=== PATIENT | female | born 1995 | race African-American/Black ===

== ENCOUNTER 2024-08-04 00:18 | Inpatient (IN) | payer OTHER ==
[2024-08-04] MEDS ORDERED: FAMOTIDINE 20 MG/50 ML IVPB 20 MG/50 ML MG IVPB ONE (01:04)
[2024-08-04] MEDS ORDERED: ACETAMINOPHEN INJECTION 100 ML ONE (01:04)
[2024-08-04] MEDS ORDERED: MAG HYDROX/AL HYDROX/SIMETH 30 ML UNIT-DOSE CUP ONE (01:04)
[2024-08-04] MEDS: FAMOTIDINE 20 MG/50 ML IVPB 20 MG/50 ML MG IVPB ONE (01:36)
[2024-08-04] MEDS: ACETAMINOPHEN 1000 MG/100 ML BAG IVPB ONE (01:36)
[2024-08-04] MEDS: MAG HYDROX/AL HYDROX/SIMETH 30 ML UNIT-DOSE CUP PO ONE (01:36)
[2024-08-04] MEDS ORDERED: morphine SULFATE 4 MG/ML VIAL ONE (01:40)
[2024-08-04 01:47] LABS: EPI CELLS 27 /uL (0-25.1); HYALINE CASTS 0 /uL (0-3.1); PH,URINE >= 9.0 (5.0-8.0); URINE APPEARANCE CLEAR; URINE BACTERIA 451 /uL (0-1359); URINE BILIRUBIN NEGATIVE (NEGATIVE); URINE COLOR YELLOW; URINE GLUCOSE (UA) NEGATIVE (NEGATIVE); URINE KETONE NEGATIVE (NEGATIVE); URINE LEUK ESTERASE NEGATIVE (NEGATIVE); URINE NITRITE NEGATIVE (NEGATIVE); URINE PROTEIN 1+ (NEGATIVE); URINE WBC 6 /uL (0-25.8)
[2024-08-04] MEDS: morphine CARPU-JECT 4 MG/1 ML DISP.SYRIN IVPUSH ONE (01:49)
[2024-08-04 01:51] LABS: INR 1.13 (0.83-1.09); PROTHROMBIN TIME (PATIENT) 12.4 SEC (9.7-13.0)
[2024-08-04] MEDS ORDERED: ONDANSETRON 4 MG/2 ML VIAL ONE ×2 (01:51→13:45)
[2024-08-04 01:54] LABS: ABSOLUTE IMMATURE GRANULOCYTES 0.02 x10^3/uL (0.0-0.031); BASOPHILS # 0.04 x10^3/uL (0.01-0.08); EOSINOPHILS # 0.08 x10^3/uL (0.04-0.36); HEMATOCRIT 35.1 % (34.1-44.9); HEMOGLOBIN 11.6 g/dL (11.2-15.7); MEAN CELL VOLUME 79.1 fl (79.4-94.8); MEAN PLT VOLUME 10.9 fl (9.4-12.3); MONOCYTE # 0.48 x10^3/uL (0.24-0.86); PLATELET COUNT 274 x10^3/uL (182-369); RDW 13.6 % (12.1-16.5)
[2024-08-04] MEDS: ONDANSETRON 4 MG/2 ML VIAL IVPUSH ONE (01:55)
[2024-08-04 02:04] LABS: CALCIUM 9.6 mg/dL (8.5-10.1)
[2024-08-04 02:05] LABS: BLOOD UREA NITROGEN 9.1 mg/dL (7-18); MAGNESIUM 2.1 mg/dL (1.8-2.4)
[2024-08-04 02:08] LABS: CREATININE 0.7 mg/dL (0.55-1.3)
[2024-08-04 02:09] LABS: BILIRUBIN,TOTAL 1.2 mg/dL (0.2-1); TOT PROT 7.4 g/dl (6.4-8.2)
[2024-08-04 02:12] LABS: POTASSIUM 3.5 mmol/L (3.5-5.1)
[2024-08-04] MEDS ORDERED: ONDANSETRON 4 MG/2 ML VIAL IVPUSH PRN ×3 (02:31→16:22)
[2024-08-04] MEDS ORDERED: MORPHINE SULFATE 2 MG/ML SYRINGE IVPUSH PRN (02:31)
[2024-08-04] MEDS ORDERED: oxyCODONE HCL 5 MG TABLET PO PRN (02:31)
[2024-08-04] MEDS: DEXTROSE 5%-0.45% SALINE 1,000 ML IV SCH ×2 (02:55→17:29)
[2024-08-04 03:00] LABS: HIV INTERPRETATION NEGATIVE (NEGATIVE)
[2024-08-04 03:01] LABS: HCV DIAGNOSTIC IN-HOUSE W/RFLX NON-REACTIVE (NONREACTIVE)
[2024-08-04 03:52] LABS: URINE RBC 21.5 /uL (0-23.9)
[2024-08-04 06:09] VITALS: BMI 30.2
[2024-08-04] MEDS: HEPARIN NA (PORCINE) 5,000 UNITS/ML 1ML VIAL SQ SCH (06:13)
[2024-08-04 08:50] LABS: BILIRUBIN,DIRECT 0.7 mg/dL (0.0-0.2)
[2024-08-04 09:22] LABS: ABSOLUTE IMMATURE GRANULOCYTES 0.02 x10^3/uL (0.0-0.031); BASOPHILS # 0.04 x10^3/uL (0.01-0.08); EOSINOPHIL % 2.2 % (0.7-5.8); EOSINOPHILS # 0.15 x10^3/uL (0.04-0.36); HEMATOCRIT 34.9 % (34.1-44.9); HEMOGLOBIN 11.2 g/dL (11.2-15.7); MCHC 32.1 g/dl (32.2-35.5); MEAN CELL VOLUME 80.6 fl (79.4-94.8); MEAN PLT VOLUME 10.7 fl (9.4-12.3); MONOCYTE # 0.45 x10^3/uL (0.24-0.86); MONOCYTE % 6.7 % (4.7-12.5); PLATELET COUNT 270 x10^3/uL (182-369); RDW 13.7 % (12.1-16.5)
[2024-08-04 09:29] LABS: INR 1.22 (0.83-1.09); PROTHROMBIN TIME (PATIENT) 13.3 SEC (9.7-13.0)
[2024-08-04 09:53] LABS: POTASSIUM 3.5 mmol/L (3.5-5.1)
[2024-08-04 10:00] LABS: ALBUMIN 3.7 g/dl (3.4-5.0); BLOOD UREA NITROGEN 6.5 mg/dL (7-18); CALCIUM 8.8 mg/dL (8.5-10.1); CREATININE 0.6 mg/dL (0.55-1.3)
[2024-08-04] MEDS ORDERED: CEFTRIAXONE 1,000 MG in DEXTROSE 5%-WATER - 50 ML IVPB SCH (10:00)
[2024-08-04 10:16] LABS: BILIRUBIN,TOTAL 1.2 mg/dL (0.2-1); TOT PROT 6.9 g/dl (6.4-8.2)
[2024-08-04] MEDS: PANTOPRAZOLE 40 MG TABLET PO SCH (11:51)
[2024-08-04] MEDS: POLYETHYLENE GLYCOL (HEALTHYLAX) 3350 17 GM PACKET PO SCH (11:51)
[2024-08-04] MEDS ORDERED: LACTATED RINGERS SOLUTION 1,000 ML IV SCH (13:30)
[2024-08-04] MEDS: CEFTRIAXONE 1 G/50 ML PREMIX 50 ML IVPB SCH (13:30)
[2024-08-04] MEDS: INDOMETHACIN 50 MG RECTAL SUPPOSITORY PR ONE (13:42)
[2024-08-04] MEDS: HYDROmorphone HCL CARPU-JECT 2 MG/1 ML DISP.SYRIN IVPB PRN (16:31)
[2024-08-04] MEDS: BENZOCAINE/MENTH/CETYLPYRD CL 1 EACH LOZENGE MM PRN (20:05)
[2024-08-04] MEDS: SENNOSIDES 8.8 MG/5 ML SYRUP PO SCH (21:07)
[2024-08-04] MEDS: LACTATED RINGERS SOLUTION 1,000 ML/1,000 ML INFUS.BAG IV SCH (21:35)
[2024-08-04] MEDS ORDERED: HEPARIN NA (PORCINE) 5,000 UNITS/ML 1ML VIAL SQ SCH (22:00)
[2024-08-05] MEDS: LACTATED RINGERS SOLUTION 1,000 ML/1,000 ML INFUS.BAG IV SCH ×2 (02:10→15:12)
[2024-08-05 08:20] LABS: ABSOLUTE IMMATURE GRANULOCYTES 0.02 x10^3/uL (0.0-0.031); BASOPHILS # 0.03 x10^3/uL (0.01-0.08); EOSINOPHIL % 1.4 % (0.7-5.8); EOSINOPHILS # 0.09 x10^3/uL (0.04-0.36); HEMOGLOBIN 10.4 g/dL (11.2-15.7); MCHC 31.5 g/dl (32.2-35.5); MEAN CELL VOLUME 82.9 fl (79.4-94.8); MONOCYTE % 6.1 % (4.7-12.5); PLATELET COUNT 212 x10^3/uL (182-369); RDW 13.7 % (12.1-16.5)
[2024-08-05 08:23] LABS: INR 1.26 (0.83-1.09); PROTHROMBIN TIME (PATIENT) 13.9 SEC (9.7-13.0)
[2024-08-05 08:44] LABS: POTASSIUM 3.8 mmol/L (3.5-5.1)
[2024-08-05 08:49] LABS: CALCIUM 8.6 mg/dL (8.5-10.1)
[2024-08-05 08:51] LABS: ALBUMIN 3.1 g/dl (3.4-5.0); BLOOD UREA NITROGEN 5.4 mg/dL (7-18)
[2024-08-05 08:54] LABS: CREATININE 0.6 mg/dL (0.55-1.3)
[2024-08-05 09:14] LABS: PHOSPHOROUS 2.8 mg/dL (2.5-4.9)
[2024-08-05] MEDS: PANTOPRAZOLE 40 MG TABLET PO SCH (09:25)
[2024-08-05] MEDS: SIMETHICONE 80 MG TAB.CHEW (FP) PO ONE (10:43)
[2024-08-05] MEDS: ACETAMINOPHEN 1000 MG/100 ML BAG IVPB PRN (11:08)
[2024-08-05] MEDS: SIMETHICONE 80 MG TAB.CHEW (FP) PO PRN (16:31)
[2024-08-06] MEDS: oxyCODONE HCL 5 MG TABLET PO PRN (01:17)
[2024-08-06 08:51] LABS: HEMATOCRIT 34.6 % (34.1-44.9); HEMOGLOBIN 11.2 g/dL (11.2-15.7); MCHC 32.4 g/dl (32.2-35.5); PLATELET COUNT 225 x10^3/uL (182-369); RDW 13.6 % (12.1-16.5)
[2024-08-06 09:07] LABS: POTASSIUM 3.5 mmol/L (3.5-5.1)
[2024-08-06 09:13] LABS: CALCIUM 8.6 mg/dL (8.5-10.1)
[2024-08-06 09:14] LABS: ALBUMIN 3.4 g/dl (3.4-5.0); BLOOD UREA NITROGEN 3.8 mg/dL (7-18)
[2024-08-06 09:17] LABS: CREATININE 0.6 mg/dL (0.55-1.3)
[2024-08-06 09:18] LABS: BILIRUBIN,TOTAL 1.4 mg/dL (0.2-1); TOT PROT 6.3 g/dl (6.4-8.2)
[2024-08-07 08:16] LABS: ABSOLUTE IMMATURE GRANULOCYTES 0.02 x10^3/uL (0.0-0.031); BASOPHILS # 0.04 x10^3/uL (0.01-0.08); EOSINOPHIL % 2.5 % (0.7-5.8); EOSINOPHILS # 0.16 x10^3/uL (0.04-0.36); HEMATOCRIT 36.2 % (34.1-44.9); HEMOGLOBIN 11.4 g/dL (11.2-15.7); MCHC 31.5 g/dl (32.2-35.5); MEAN CELL VOLUME 82.1 fl (79.4-94.8); MEAN PLT VOLUME 10.7 fl (9.4-12.3); MONOCYTE # 0.44 x10^3/uL (0.24-0.86); MONOCYTE % 6.9 % (4.7-12.5); PLATELET COUNT 237 x10^3/uL (182-369); RDW 13.3 % (12.1-16.5)
[2024-08-07 08:39] LABS: POTASSIUM 3.9 mmol/L (3.5-5.1)
[2024-08-07 08:48] LABS: CALCIUM 8.9 mg/dL (8.5-10.1)
[2024-08-07 08:49] LABS: ALBUMIN 3.4 g/dl (3.4-5.0); BLOOD UREA NITROGEN 5.8 mg/dL (7-18)
[2024-08-07 08:52] LABS: CREATININE 0.6 mg/dL (0.55-1.3)
[2024-08-07 08:53] LABS: BILIRUBIN,TOTAL 0.9 mg/dL (0.2-1)
[2024-08-07 08:54] LABS: TOT PROT 6.5 g/dl (6.4-8.2)
[2024-08-07] MEDS ORDERED: oxyCODONE HCL 5 MG TABLET PO PRN (12:53)
[2024-08-07] MEDS: HYDROmorphone HCL CARPU-JECT 2 MG/1 ML DISP.SYRIN IVPB PRN (13:06)
[2024-08-08] MEDS ORDERED: DEXAMETHASONE SOD PHOSPHATE 4 MG/1 ML VIAL ONE (08:01)
[2024-08-08] MEDS ORDERED: KETOROLAC TROMETHAMINE 30 MG/1 ML VIAL ONE (08:01)
[2024-08-08] MEDS ORDERED: ONDANSETRON 4 MG/2 ML VIAL ONE (08:01)
[2024-08-08] MEDS ORDERED: ROCURONIUM BROMIDE 50 MG/5 ML SYRINGE ONE ×2 (08:02→09:30)
[2024-08-08] MEDS ORDERED: PROPOFOL 20 ML ONE ×2 (08:02→09:18)
[2024-08-08] MEDS ORDERED: MIDAZOLAM HCL 2 MG/2 ML SINGLE DOSE VIAL ONE ×2 (08:05→11:36)
[2024-08-08 08:13] LABS: ABSOLUTE IMMATURE GRANULOCYTES 0.02 x10^3/uL (0.0-0.031); BASOPHILS # 0.04 x10^3/uL (0.01-0.08); EOSINOPHIL % 1.5 % (0.7-5.8); EOSINOPHILS # 0.12 x10^3/uL (0.04-0.36); HEMATOCRIT 40.3 % (34.1-44.9); MCHC 32.3 g/dl (32.2-35.5); MEAN CELL VOLUME 81.4 fl (79.4-94.8); MEAN PLT VOLUME 10.2 fl (9.4-12.3); MONOCYTE # 0.44 x10^3/uL (0.24-0.86); MONOCYTE % 5.5 % (4.7-12.5); PLATELET COUNT 299 x10^3/uL (182-369); RDW 13.3 % (12.1-16.5)
[2024-08-08] MEDS ORDERED: BUPIVACAINE HCL/PF 0.25% (2.5MG/ML) 10 ML VIAL ONE (08:25)
[2024-08-08] MEDS: CEFTRIAXONE 1 GM/50 ML PREMIX IVPB ONE (08:30)
[2024-08-08 08:41] LABS: POTASSIUM 4.3 mmol/L (3.5-5.1)
[2024-08-08 08:43] LABS: CALCIUM 9.3 mg/dL (8.5-10.1)
[2024-08-08 08:44] LABS: ALBUMIN 3.9 g/dl (3.4-5.0); BLOOD UREA NITROGEN 6.3 mg/dL (7-18); MAGNESIUM 2.1 mg/dL (1.8-2.4)
[2024-08-08 08:47] LABS: CREATININE 0.6 mg/dL (0.55-1.3); PHOSPHOROUS 3.4 mg/dL (2.5-4.9)
[2024-08-08 08:48] LABS: BILIRUBIN,TOTAL 0.9 mg/dL (0.2-1)
[2024-08-08 08:49] LABS: TOT PROT 7.4 g/dl (6.4-8.2)
[2024-08-08] MEDS ORDERED: HYDROmorphone HCl 2 MG/ML VIAL ONE (09:34)
[2024-08-08] MEDS: BUPIVACAINE HCL/PF 0.25% (2.5MG/ML) 10 ML VIAL IJ ONE ×2 (09:40)
[2024-08-08] MEDS ORDERED: PROMETHAZINE HCL 25 MG/1 ML VIAL IVPB PRN ×2 (10:05→12:15)
[2024-08-08] MEDS ORDERED: SUGAMMADEX SODIUM 200 MG/2 ML VIAL ONE (10:55)
[2024-08-08] MEDS ORDERED: DEXMEDETOMIDINE HCL 200 MCG/2 ML IVPB ONE (11:43)
[2024-08-08] MEDS: LACTATED RINGERS SOLUTION 1,000 ML IV SCH ×2 (12:12→14:13)
[2024-08-08] MEDS ORDERED: ONDANSETRON 4 MG/2 ML VIAL IVPUSH PRN (12:15)
[2024-08-08] MEDS ORDERED: SIMETHICONE 80 MG TAB.CHEW (FP) PO PRN (12:15)
[2024-08-08] MEDS ORDERED: oxyCODONE HCL 5 MG TABLET PO PRN (12:15)
[2024-08-08] MEDS ORDERED: BENZOCAINE/MENTH/CETYLPYRD CL 1 EACH LOZENGE MM PRN (12:15)
[2024-08-08 14:13] VITALS: RESP 16
[2024-08-08] MEDS: KETOROLAC TROMETHAMINE 30 MG/1 ML VIAL IM SCH (18:00)
[2024-08-08] MEDS: DOCUSATE SODIUM 100 MG CAPSULE (FP) PO SCH (18:05)
[2024-08-08] MEDS: ACETAMINOPHEN 1000 MG/100 ML BAG IVPB SCH (18:05)
[2024-08-08] MEDS: SENNOSIDES 8.8 MG/5 ML SYRUP PO SCH (22:19)
[2024-08-08] MEDS: KETOROLAC TROMETHAMINE 30 MG/1 ML VIAL IVPUSH ONE (23:25)
[2024-08-08] MEDS: KETOROLAC TROMETHAMINE 30 MG/1 ML VIAL IVPB ONE (23:35)
[2024-08-09] MEDS: MELATONIN 5 MG TABLETS PO ONE (00:45)
[2024-08-09] MEDS: oxyCODONE HCL 5 MG TABLET PO PRN (00:46)
[2024-08-09] MEDS ORDERED: IBUPROFEN 600 MG TABLET (FP) PO PRN (05:45)
[2024-08-09] MEDS ORDERED: ACETAMINOPHEN 500 MG TABLET (FP) PO PRN ×2 (05:45→11:19)
[2024-08-09 08:54] LABS: HEMATOCRIT 35.2 % (34.1-44.9); HEMOGLOBIN 11.4 g/dL (11.2-15.7); MCHC 32.4 g/dl (32.2-35.5); MEAN CELL VOLUME 82.1 fl (79.4-94.8); MEAN PLT VOLUME 10.9 fl (9.4-12.3); PLATELET COUNT 247 x10^3/uL (182-369); RDW 13.6 % (12.1-16.5)
[2024-08-09] MEDS: CEFTRIAXONE 1 G/50 ML PREMIX 50 ML IVPB SCH (09:04)
[2024-08-09] MEDS: PANTOPRAZOLE 40 MG TABLET PO SCH (09:04)
[2024-08-09] MEDS: POLYETHYLENE GLYCOL (HEALTHYLAX) 3350 17 GM PACKET PO SCH (09:04)
[2024-08-09 09:12] LABS: POTASSIUM 3.8 mmol/L (3.5-5.1)
[2024-08-09 09:21] LABS: ALBUMIN 3.6 g/dl (3.4-5.0); BILIRUBIN,TOTAL 0.9 mg/dL (0.2-1); MAGNESIUM 1.9 mg/dL (1.8-2.4)
[2024-08-09 09:22] LABS: TOT PROT 6.5 g/dl (6.4-8.2)
[2024-08-09 09:24] LABS: BILIRUBIN,DIRECT 0.7 mg/dL (0.0-0.2); CREATININE 0.6 mg/dL (0.55-1.3)
[2024-08-09 09:25] LABS: PHOSPHOROUS 2.9 mg/dL (2.5-4.9)
[2024-08-09 10:32] VITALS: BP 118/69; PULSE 58; TEMP 97.5
[2024-08-09] MEDS ORDERED: oxyCODONE HCL 5 MG TABLET PO PRN (11:19)
[2024-08-09] MEDS: IBUPROFEN 600 MG TABLET (FP) PO PRN (11:26)
== END 2024-08-09 12:32 | disposition home or self-care (01) | DRG 263 ==
LOC: JER 00:18 → JERBED 02:11 → J6S 05:00 → OBSVTOIN 08-06 10:41
PROVIDERS: ADMIT Hospitalist; ATTEND Internal Medicine
PROC: 0FC98ZZ Extirpation of Matter from Common Bile Duct, Via Natural or Artificial Opening Endoscopic (ICD-10-PCS; 2024-08-04)
PROC: BF14YZZ Fluoroscopy of Gallbladder, Bile Ducts and Pancreatic Ducts using Other Contrast (ICD-10-PCS; 2024-08-04)
PROC: 0F798DZ Dilation of Common Bile Duct with Intraluminal Device, Via Natural or Artificial Opening Endoscopic (ICD-10-PCS; 2024-08-04)
PROC: 0FB98ZX Excision of Common Bile Duct, Via Natural or Artificial Opening Endoscopic, Diagnostic (ICD-10-PCS; 2024-08-04)
PROC: 0FT44ZZ Resection of Gallbladder, Percutaneous Endoscopic Approach (ICD-10-PCS; principal; 2024-08-08 09:00)
DX: K80.20 Calculus of gallbladder without cholecystitis without obstruction (principal); K76.0 Fatty (change of) liver, not elsewhere classified; E80.6 Other disorders of bilirubin metabolism; R10.11 Right upper quadrant pain; R11.2 Nausea with vomiting, unspecified
CPT/HCPCS: 36415; 74181-TC; 76000-TC-FY; 76705-TC; 80053; 81003; 82248; 83605; 83690; 83735; 84100; 84703; 85025; 85027; 85610; 85730; 86140; 86803; 86850; 86900; 86901; 87086; 87389; 88104; 88304-TC; 88305-TC; 94010; 94760; 99285-25; G0378; J0131

== ENCOUNTER 2024-08-10 00:57 | Inpatient (IN) | payer OTHER ==
[2024-08-10] MEDS ORDERED: ACETAMINOPHEN INJECTION 100 ML ONE (02:44)
[2024-08-10] MEDS: ACETAMINOPHEN 1000 MG/100 ML BAG IVPB ONE (03:09)
[2024-08-10 03:19] LABS: ABSOLUTE IMMATURE GRANULOCYTES 0.04 x10^3/uL (0.0-0.031); BASOPHILS # 0.06 x10^3/uL (0.01-0.08); EOSINOPHIL % 0.3 % (0.7-5.8); EOSINOPHILS # 0.03 x10^3/uL (0.04-0.36); HEMOGLOBIN 11.6 g/dL (11.2-15.7); MCHC 33.1 g/dl (32.2-35.5); MEAN CELL VOLUME 80.5 fl (79.4-94.8); MEAN PLT VOLUME 10.6 fl (9.4-12.3); MONOCYTE # 0.78 x10^3/uL (0.24-0.86); MONOCYTE % 6.9 % (4.7-12.5); PLATELET COUNT 274 x10^3/uL (182-369)
[2024-08-10 03:36] LABS: POTASSIUM 3.4 mmol/L (3.5-5.1)
[2024-08-10 03:38] LABS: ALBUMIN 3.9 g/dl (3.4-5.0); BLOOD UREA NITROGEN 5.6 mg/dL (7-18)
[2024-08-10 03:41] LABS: CREATININE 0.8 mg/dL (0.55-1.3)
[2024-08-10 03:43] LABS: BILIRUBIN,TOTAL 2.7 mg/dL (0.2-1); TOT PROT 7.2 g/dl (6.4-8.2)
[2024-08-10 03:49] LABS: CALCIUM 8.7 mg/dL (8.5-10.1); LACTIC ACID 2.4 mmol/L (0.4-2.0)
[2024-08-10 03:53] LABS: INR 1.29 (0.83-1.09); PROTHROMBIN TIME (PATIENT) 14.2 SEC (9.7-13.0)
[2024-08-10 03:56] LABS: ACTIVATED PTT 29.9 SECONDS (25.2-36.5)
[2024-08-10] MEDS ORDERED: morphine SULFATE 4 MG/ML VIAL ONE ×2 (05:07→07:35)
[2024-08-10] MEDS: morphine CARPU-JECT 4 MG/1 ML DISP.SYRIN IVPUSH ONE ×2 (05:12→07:57)
[2024-08-10] MEDS: SODIUM CHLORIDE 1,000 ML IV STA (05:12)
[2024-08-10] MEDS ORDERED: KETOROLAC TROMETHAMINE 15 MG/ML VIAL ONE (07:35)
[2024-08-10] MEDS ORDERED: ONDANSETRON 4 MG/2 ML VIAL ONE (07:36)
[2024-08-10] MEDS: LACTATED RINGERS SOLUTION 1000 ML INFUS.BAG IV ONE (07:58)
[2024-08-10] MEDS: KETOROLAC TROMETHAMINE 15 MG/ML VIAL IVPUSH ONE (07:58)
[2024-08-10] MEDS: ONDANSETRON 4 MG/2 ML VIAL IVPUSH ONE (07:58)
[2024-08-10 08:03] LABS: PH,URINE 7.5 (5.0-8.0); URINE APPEARANCE CLEAR; URINE BILIRUBIN 1+ (NEGATIVE); URINE COLOR DK YELLOW; URINE GLUCOSE (UA) NEGATIVE (NEGATIVE); URINE KETONE 1+ (NEGATIVE); URINE LEUK ESTERASE NEGATIVE (NEGATIVE); URINE NITRITE NEGATIVE (NEGATIVE); URINE PROTEIN NEGATIVE (NEGATIVE)
[2024-08-10] MEDS ORDERED: oxyCODONE HCL 5 MG TABLET PO PRN (08:45)
[2024-08-10] MEDS ORDERED: HYDROmorphone HCl 2 MG/ML VIAL IVPUSH PRN ×2 (08:46→09:06)
[2024-08-10] MEDS ORDERED: HYDROmorphone HCL CARPU-JECT 2 MG/1 ML DISP.SYRIN IVPUSH PRN (09:24)
[2024-08-10] MEDS ORDERED: LACTATED RINGERS SOLUTION 1,000 ML/1,000 ML INFUS.BAG IV SCH (10:00)
[2024-08-10] MEDS: SODIUM CHLORIDE 1,000 ML IV SCH (10:13)
[2024-08-10] MEDS: CEFEPIME 2 GM in DEXTROSE 5%-WATER 100 ML IVPB SCH (11:48)
[2024-08-10] MEDS: KETOROLAC TROMETHAMINE 15 MG/ML VIAL IVPUSH PRN (13:31)
[2024-08-10 15:14] LABS: ABSOLUTE IMMATURE GRANULOCYTES 0.02 x10^3/uL (0.0-0.031); BASOPHILS # 0.03 x10^3/uL (0.01-0.08); EOSINOPHIL % 0.5 % (0.7-5.8); EOSINOPHILS # 0.03 x10^3/uL (0.04-0.36); HEMATOCRIT 31.6 % (34.1-44.9); HEMOGLOBIN 10.4 g/dL (11.2-15.7); MCHC 32.9 g/dl (32.2-35.5); MEAN PLT VOLUME 11.4 fl (9.4-12.3); MONOCYTE # 0.39 x10^3/uL (0.24-0.86); MONOCYTE % 6.4 % (4.7-12.5); PLATELET COUNT 232 x10^3/uL (182-369); RDW 14.5 % (12.1-16.5)
[2024-08-10 15:22] LABS: INR 1.31 (0.83-1.09); PROTHROMBIN TIME (PATIENT) 14.3 SEC (9.7-13.0)
[2024-08-10 15:37] LABS: CHLORIDE 107 mmol/L (98-107); POTASSIUM 3.1 mmol/L (3.5-5.1); SODIUM 139 mmol/L (136-145)
[2024-08-10 15:43] LABS: ALBUMIN 3.4 g/dl (3.4-5.0); ANION GAP 9 mmol/L (4-13); CALCIUM 8.4 mg/dL (8.5-10.1); CO2 23 mmol/L (21-32)
[2024-08-10 15:44] LABS: GLUCOSE,RANDOM 105 mg/dL (74-106)
[2024-08-10 15:46] LABS: CREATININE 0.5 mg/dL (0.55-1.3); SGOT/AST 382 U/L (15-37); SGPT/ALT 421 U/L (13-61)
[2024-08-10 15:48] LABS: BILIRUBIN,TOTAL 2.8 mg/dL (0.2-1); TOT PROT 6.1 g/dl (6.4-8.2)
[2024-08-10 15:49] LABS: ALK PHOS 173 U/L (45-117)
[2024-08-10 15:54] LABS: BLOOD UREA NITROGEN 2.2 mg/dL (7-18)
[2024-08-10] MEDS: morphine SULFATE 4 MG/ML VIAL IVPUSH PRN (16:44)
[2024-08-10] MEDS: PIPERACILLIN/TAZOB 3.375 GM 50 ML IVPB SCH (17:06)
[2024-08-10] MEDS: LACTATED RINGERS SOLUTION 1,000 ML/1,000 ML INFUS.BAG IV SCH (18:53)
[2024-08-10] MEDS: HYDROmorphone HCL CARPU-JECT 2 MG/1 ML DISP.SYRIN IVPUSH ONE ×2 (19:12→22:32)
[2024-08-10] MEDS ORDERED: HYDROmorphone HCl 2 MG/ML VIAL IVPB PRN (21:40)
[2024-08-10] MEDS ORDERED: MELATONIN 5 MG TABLETS PO PRN (21:40)
[2024-08-10] MEDS ORDERED: hydrOXYzine PAMOATE 25 MG CAPSULE (FP) PO PRN (21:40)
[2024-08-10] MEDS ORDERED: HYDROmorphone HCL CARPU-JECT 2 MG/1 ML DISP.SYRIN IVPB PRN (22:29)
[2024-08-10] MEDS: HYDROmorphone HCl 2 MG/ML VIAL IVPUSH ONE (22:43)
[2024-08-11] MEDS: morphine SULFATE 4 MG/ML VIAL IVPUSH PRN (00:54)
[2024-08-11] MEDS: CEFEPIME HCL 2 GM VIAL (RESTRICTED TO ID) IVPB SCH (01:39)
[2024-08-11] MEDS: KETOROLAC TROMETHAMINE 15 MG/ML VIAL IVPUSH PRN (03:29)
[2024-08-11 07:23] LABS: ABSOLUTE IMMATURE GRANULOCYTES 0.01 x10^3/uL (0.0-0.031); BASOPHILS # 0.03 x10^3/uL (0.01-0.08); EOSINOPHIL % 0.7 % (0.7-5.8); EOSINOPHILS # 0.05 x10^3/uL (0.04-0.36); HEMOGLOBIN 10.3 g/dL (11.2-15.7); MCHC 32.2 g/dl (32.2-35.5); MEAN CELL VOLUME 82.3 fl (79.4-94.8); MEAN PLT VOLUME 11.1 fl (9.4-12.3); MONOCYTE # 0.62 x10^3/uL (0.24-0.86); MONOCYTE % 8.4 % (4.7-12.5); PLATELET COUNT 227 x10^3/uL (182-369); RDW 14.4 % (12.1-16.5)
[2024-08-11] MEDS: HYDROmorphone HCL CARPU-JECT 2 MG/1 ML DISP.SYRIN IVPUSH PRN (07:46)
[2024-08-11 07:59] LABS: CHLORIDE 105 mmol/L (98-107); POTASSIUM 3.3 mmol/L (3.5-5.1); SODIUM 137 mmol/L (136-145)
[2024-08-11 08:02] LABS: CALCIUM 8.8 mg/dL (8.5-10.1)
[2024-08-11 08:03] LABS: ALBUMIN 3.2 g/dl (3.4-5.0); ANION GAP 7 mmol/L (4-13); CO2 25 mmol/L (21-32); GLUCOSE,RANDOM 97 mg/dL (74-106); INR 1.38 (0.83-1.09); MAGNESIUM 1.5 mg/dL (1.8-2.4); PROTHROMBIN TIME (PATIENT) 15.2 SEC (9.7-13.0)
[2024-08-11 08:06] LABS: ALBUMIN 3.1 g/dl (3.4-5.0)
[2024-08-11 08:06] LABS: CREATININE 0.5 mg/dL (0.55-1.3); PHOSPHOROUS 3.2 mg/dL (2.5-4.9); SGOT/AST 267 U/L (15-37); SGPT/ALT 397 U/L (13-61)
[2024-08-11 08:07] LABS: BILIRUBIN,TOTAL 3.6 mg/dL (0.2-1)
[2024-08-11 08:08] LABS: TOT PROT 5.9 g/dl (6.4-8.2)
[2024-08-11 08:09] LABS: ALK PHOS 189 U/L (45-117)
[2024-08-11 08:11] LABS: BILIRUBIN,TOTAL 3.6 mg/dL (0.2-1); TOT PROT 5.8 g/dl (6.4-8.2)
[2024-08-11 08:29] LABS: BLOOD UREA NITROGEN 2.8 mg/dL (7-18)
[2024-08-11] MEDS: MAGNESIUM SULFATE IN WATER 2 GM/50 ML IVPB IVPB ONE (11:32)
[2024-08-11] MEDS: KCL 10 MEQ IVPB 10 MEQ/100 ML INFUS.BAG IVPB SCH (12:20)
[2024-08-11] MEDS ORDERED: MIDAZOLAM HCL 2 MG/2 ML SINGLE DOSE VIAL ONE (15:12)
[2024-08-11] MEDS ORDERED: DEXMEDETOMIDINE HCL 200 MCG/2 ML IVPB ONE (15:24)
[2024-08-11] MEDS: INDOMETHACIN 50 MG RECTAL SUPPOSITORY PR ONE (16:29)
[2024-08-11] MEDS ORDERED: ONDANSETRON 4 MG/2 ML VIAL IVPUSH PRN (17:29)
[2024-08-11] MEDS: LACTATED RINGERS SOLUTION 1,000 ML IV SCH (17:43)
[2024-08-11] MEDS ORDERED: ONDANSETRON 4 MG/2 ML VIAL ONE (18:14)
[2024-08-11] MEDS: ONDANSETRON 4 MG/2 ML VIAL IVPUSH PRN (18:17)
[2024-08-12 07:52] LABS: HEMATOCRIT 32.7 % (34.1-44.9); HEMOGLOBIN 10.8 g/dL (11.2-15.7); MEAN CELL VOLUME 80.1 fl (79.4-94.8); MEAN PLT VOLUME 11.4 fl (9.4-12.3); PLATELET COUNT 252 x10^3/uL (182-369); RDW 13.7 % (12.1-16.5)
[2024-08-12 07:59] LABS: POTASSIUM 3.8 mmol/L (3.5-5.1)
[2024-08-12 08:00] LABS: CALCIUM 8.8 mg/dL (8.5-10.1)
[2024-08-12 08:01] LABS: ALBUMIN 3.3 g/dl (3.4-5.0); BLOOD UREA NITROGEN 5.1 mg/dL (7-18)
[2024-08-12 08:04] LABS: CREATININE 0.5 mg/dL (0.55-1.3)
[2024-08-12 08:06] LABS: BILIRUBIN,TOTAL 1.5 mg/dL (0.2-1); TOT PROT 6.3 g/dl (6.4-8.2)
[2024-08-12 10:55] VITALS: RESP 18
[2024-08-12 12:09] VITALS: BMI 30.4
[2024-08-12 14:05] VITALS: BP 131/86; PULSE 59; TEMP 98.8
== END 2024-08-12 18:02 | disposition home or self-care (01) ==
LOC: JER 00:57 → JERBED 04:48 → J7W 09:05 → OBSVTOIN 08-11 14:08
PROVIDERS: ADMIT Internal Medicine; ATTEND Physician Assistant
PROC: BF100ZZ Fluoroscopy of Bile Ducts using High Osmolar Contrast (ICD-10-PCS; 2024-08-11)
PROC: 0FC98ZZ Extirpation of Matter from Common Bile Duct, Via Natural or Artificial Opening Endoscopic (ICD-10-PCS; 2024-08-11)
PROC: 0F798DZ Dilation of Common Bile Duct with Intraluminal Device, Via Natural or Artificial Opening Endoscopic (ICD-10-PCS; principal; 2024-08-11 10:00)
DX: K80.20 Calculus of gallbladder without cholecystitis without obstruction (principal); E83.42 Hypomagnesemia; K76.0 Fatty (change of) liver, not elsewhere classified; D64.9 Anemia, unspecified; D72.829 Elevated white blood cell count, unspecified; E87.6 Hypokalemia; G47.00 Insomnia, unspecified; R11.2 Nausea with vomiting, unspecified; R74.01 Elevation of levels of liver transaminase levels; R94.5 Abnormal results of liver function studies; R10.11 Right upper quadrant pain
CPT/HCPCS: 36415; 74181-TC; 76000-TC-FY; 76705-TC; 78226-TC; 80053; 80076; 81003; 83605; 83690; 83735; 84100; 84703; 85025; 85027; 85610; 85730; 86850; 86900; 86901; 87040; 87086; 94760; 99285-25; A9537; C1874; G0378; J0131

== ENCOUNTER 2024-11-21 09:34 | Emergency (ER) | payer OTHER ==
[2024-11-21 09:51] VITALS: RESP 17; BMI 31.0
[2024-11-21 10:49] LABS: EPI CELLS >36 /uL (0-25.1); HYALINE CASTS 1 /uL (0-3.1); URINE APPEARANCE CLOUDY; URINE BACTERIA 2042 /uL (0-1359); URINE BILIRUBIN NEGATIVE (NEGATIVE); URINE COLOR YELLOW; URINE GLUCOSE (UA) NEGATIVE (NEGATIVE); URINE KETONE NEGATIVE (NEGATIVE); URINE LEUK ESTERASE 1+ (NEGATIVE); URINE NITRITE NEGATIVE (NEGATIVE); URINE PROTEIN 1+ (NEGATIVE); URINE RBC 57 /uL (0-23.9); URINE UROBILINOGEN 0.2 mg/dL (0.2-1.0); URINE WBC 62 /uL (0-25.8)
[2024-11-21 12:51] VITALS: BP 124/79; PULSE 64; TEMP 98.4
== END 2024-11-21 12:58 | disposition home or self-care (01) ==
LOC: JER 09:34
DX: O20.9 Hemorrhage in early pregnancy, unspecified (principal); O26.891 Other specified pregnancy related conditions, first trimester; R10.30 Lower abdominal pain, unspecified; Z3A.00 Weeks of gestation of pregnancy not specified
CPT/HCPCS: 36415; 76817-TC; 80053; 81003; 81025; 84702; 85025; 85610; 86850; 86900; 86901; 99284-25